=== PATIENT | female | born 1965 | race Caucasian/White ===

== ENCOUNTER 2016-11-20 11:04 | Inpatient (IN) | payer BC, OTHER ==
[~2016-11-20] VITALS: Ht 172.7 cm; Wt 54.0 kg
[2016-11-20] MEDS ORDERED: NICO1PAT27 TD (13:23)
[2016-11-20] MEDS ORDERED: ESTR1PAT78 TD (13:23)
[2016-11-20] MEDS ORDERED: OMEP20CA10 PO (13:28)
[2016-11-20] MEDS ORDERED: TRET20CR35 TP (13:28)
--- NOTE | 2016-11-20 13:30 | NUR ---
PRE ADMISSION Pt in intake office , came from home. Pt alert and oriented to name, place, and time. Perrla. Skin warm and dry to touch. Respirations even and unlabored. No distress noted. YK=129/59 P=85 R=16 U7=011%@RA T=98.0. Explained to pt about rules on unit and what to expect.
[2016-11-20 13:32] LABS: *AMPHETAMINE, URINE POSITIVE (NEGATIVE); *BARBITURATE, URINE NEGATIVE (NEGATIVE); *CANNABINOID, URINE NEGATIVE (NEGATIVE); *COCCAINE, URINE NEGATIVE (NEGATIVE); *OPIATE, URINE POSITIVE (NEGATIVE); *PHENCYCLIDINE SCREEN,URINE NEGATIVE (NEGATIVE)
[2016-11-20] MEDS ORDERED: ARIP5TAB10 PO (13:37)
[2016-11-20] MEDS ORDERED: VALA500T34 PO (13:37)
[2016-11-20] MEDS ORDERED: FLUO-120 PO (13:37)
[2016-11-20] MEDS ORDERED: TRAZ-147 PO (13:37)
--- NOTE | 2016-11-20 14:00 | NUR ---
ADMISSION Pt 51 y/o female admitted for opioid dependence. Pt came from home and was assissted by friend to come to acute detox. Pt alert and oriented to name, place, and time. Perrla. Skin warm and dry to touch. Respirations even and unlabored. VS wnl. No hand tremors noted. Pt ambulatory unassissted with steady gait noted. Pt was seen by MD. Oriented pt to room and unit. Allergy with prednisone. Pt denies any sz history. No distress noted at this time. substance hx: 1) norco po 10/750mg x 10 pills daily x 3 years, and last took 11/20/16 10/750mg x2 pills 2) vivance po 70mg daily x3 years, and last took 11/20/16 70mg medical hx: ILD 2016, lupus 1996, Mixed Connective Tissue Disase 1996, hepatitis 1999 treatment hx 180 in 2011 for 10 months Mignon ledesma for 30 days , but does not remember the dates Addendum: 11/20/16 at 1829 by MAYDA GRAVES RN addition: initial cows=2. Skin clear.
[2016-11-20] MEDS ORDERED: METHOCARBAMOL 750 MG TABLET PO PRN (15:00)
[2016-11-20] MEDS ORDERED: MIRALAX 17 GM POWD.PACK PO PRN (15:00)
[2016-11-20] MEDS ORDERED: ONDANSETRON 4 MG/2 ML VIAL IM PRN (15:00)
[2016-11-20] MEDS ORDERED: MAG HYDROX/AL HYDROX/SIMETH 30 ML LIQUID UDC PO PRN (15:00)
[2016-11-20] MEDS ORDERED: CLONIDINE HCL 0.1 MG TABLET PO PRN (15:00)
[2016-11-20] MEDS ORDERED: DICYCLOMINE HCL 20 MG TABLET PO PRN (15:00)
[2016-11-20] MEDS ORDERED: MAGNESIUM HYDROXIDE 30 ML LIQUID UDC PO PRN (15:00)
[2016-11-20] MEDS ORDERED: LOPERAMIDE HCL 2 MG CAPSULE PO PRN ×2 (15:00)
[2016-11-20] MEDS ORDERED: BUPRENORPHINE HCL 2 MG TAB.SUBL SL PRN (15:00)
[2016-11-20] MEDS ORDERED: diphenhydrAMINE 50 MG CAPSULE PO PRN (15:00)
[2016-11-20] MEDS: NICOTINE 21MG PATCH TOP SCH (15:30)
[2016-11-20] MEDS ORDERED: TRAZODONE 50 MG TABLET PO PRN (15:30)
[2016-11-20 16:25] LABS: ALANINE AMINOTRANSFERASE 17 U/L (14-59); ALKALINE PHOSPHATASE 110 U/L (50-136); ASPARTATE AMINOTRANSFERASE 23 U/L (15-37); BILIRUBIN,TOTAL 0.1 mg/dL (0.2-1.0); CARBON DIOXIDE 28 mmol/L (21-32); CHLORIDE 102 mmol/L (98-107); CREATININE 0.6 mg/dL (0.6-1.3); GLUCOSE 113 mg/dL (74-106); MAGNESIUM 1.8 mg/dL (1.8-2.4); POTASSIUM 3.9 mmol/L (3.5-5.1); TOTAL PROTEIN, SERUM 8.3 g/dL (6.4-8.2); UREA NITROGEN, BLOOD 10 mg/dL (7-18)
[2016-11-20 16:28] LABS: ETHANOL < 3 MG/DL (0-0)
[2016-11-20 16:30] LABS: THYROID STIMULATING HORMONE 1.328 mIU/mL (0.358-3.740)
[2016-11-20 16:46] LABS: BASOPHILS # (AUTO) 0.1 K/uL (0.0-8.0); BASOPHILS % (AUTO) 0.7 % (0.0-2.0); EOSINOPHILS # (AUTO) 0.2 K/uL (0.0-0.7); EOSINOPHILS % (AUTO) 1.8 % (0.0-7.0); HEMATOCRIT 32.6 % (37-47); HEMOGLOBIN 10.6 G/DL (12.0-16.0); LYMPHOCYTES # (AUTO) 2.2 K/UL (0.8-4.8); MEAN CORPUSCULAR HEMOGLOBIN 28.2 UUG (27.0-31.0); MEAN CORPUSCULAR HGB CONC 32 g/dL (32.0-37.0); MEAN CORPUSCULAR VOLUME 87.1 FL (81.0-99.0); MONOCYTES # (AUTO) 0.6 K/UL (0.1-1.30); MONOCYTES % (AUTO) 6.3 % (0.0-11.0); NEUTROPHILS # (AUTO) 5.9 K/UL (1.8-8.9); NEUTROPHILS % (AUTO) 67.2 % (38.5-71.5); PLATELET COUNT (AUTO) 211 K/UL (150-450); RED BLOOD CELL COUNT(AUTO) 3.74 MIL/UL (4.2-5.4)
[2016-11-20 17:00] VITALS: BP 102/69
--- NOTE | 2016-11-20 18:29 | NUR ---
END OF SHIFT Pt 51 y/o female admitted for opioid dependence. Pt alert and oriented to name, place, and time. Perrla. Skin warm and dry to touch. Respirations even and unlabored. No hand tremors noted at this time. Pt observed mostly isolative to room today. Pt was seen by MD today. Bed on lowest position with side rails x 2 up for safety. Call light within reach. No distress noted at this time.
--- NOTE | 2016-11-20 19:50 | NUR ---
Start of Shift Note: Report received from day shift nurse. Pt is a 51 yo female admitted on 11/20/16 for medically-supervised withdrawal from opiates. Pt reports taking 10 tabs of 750/10mg [place] daily for 3 years. Pt is to start a 5-day Subutex taper tomorrow; PRN Subutex is available tonight. Pt received with last COWS=1, and no PRN's were given during day shift. Pt is a full code, reports allergy to prednisone, and is on a regular diet. PMHx: interstitial lung disease (2016), lupus (1996), mixed connective tissue disease (1996), hepatitis-B (1977, 1999). Pt received in room, and reports anxiety, pain; pt noted to be diaphoretic . Bed is in low position and locked, side rails up x2, call light within reach. Will continue to monitor.
[2016-11-20 20:00] VITALS: BP 110/76
[2016-11-20] MEDS: IBUPROFEN 600 MG TABLET PO PRN (20:44)
--- NOTE | 2016-11-20 20:45 | NUR ---
PRN's Motrin, Robaxin, and Clonidine: Patient complains of 8/10 pain in neck, generalized, and h/a. Administered PRN Motrin as ordered. Patient complains of myalgia in neck and legs. Administered PRN Robaxin as ordered. Patient complains of anxiety, diaphoresis, and chills. Administered PRN Clonidine as ordered. Will continue to monitor.
--- NOTE | 2016-11-20 21:45 | NUR ---
PRN Reassessment: Patient reports mild relief of anxiety, diaphoresis, myalgia and pain. PRN's Robaxin, Clonidine, and Motrin mildly effective. Will continue to monitor s/s of withdrawal for Subutex induction.
[2016-11-20] MEDS: HYDROXYZINE PAMOATE 25 MG CAPSULE PO PRN (22:57)
--- NOTE | 2016-11-20 22:57 | NUR ---
PRN Vistaril and PRN Trazodone: Patient complains of anxiety. Administered PRN Vistaril as ordered. Patient complains of inability to sleep. Administered PRN Trazodone as ordered. Will continue to monitor.
--- NOTE | 2016-11-20 23:57 | NUR ---
PRN Reassessment: Patient reports that she is too uncomfortable to sleep and is too anxious. PRN Trazodone and PRN Vistaril not effective d/t opiate withdrawal symptoms. Patient educated on risks and benefits of Subutex induction and patient verbalized understanding and agreement. COWS is now at 14 and appropriate for induction according to dose instructions and last use reported.
[2016-11-21] VITALS (9 sets, daily range): BP systolic 67–112; BP diastolic 36–81
--- NOTE | 2016-11-21 00:26 | NUR ---
PRN Subutex: Patient complains of anxiety, restlessness, myalgia, generalized pain; pt noted to be diaphoretic. COWS is 14. Administered PRN Subutex 4mg SL as ordered. Will reassess in 30 minutes.
--- NOTE | 2016-11-21 01:00 | NUR ---
PRN Subutex Reassessment: Patient noted to be less anxious and restless, reports a reduction in pain. COWS decreased from 14 to 2 thirty minutes after PRN Subutex 4mg SL administration. Will continue to monitor.
--- NOTE | 2016-11-21 04:00 | NUR ---
COWS Deferred: COWS is deferred for sleep. V/S stable. All safety precautions are in place. Will continue to monitor. Addendum: 11/21/16 at 0526 by NATHALIA SAEZ RN Amended: Links added.
--- NOTE | 2016-11-21 07:30 | NUR ---
End of Shift Note: Pt is a 51 yo female admitted to [facility] on 11/20/16 for medically-supervised withdrawal from opiates. Pt reported a PMHx of interstitial lung disease (2016), lupus (1996), mixed connective tissue disease (1996), and hepatitis-B (1977, 1999). Pt is a full code. Pt reports allergy to prednisone. Pt is on a regular diet. Pt reported taking 10 tabs of 750/10mg [place] daily for 3 years. Pt is to start a 5-day Subutex taper tomorrow. Scheduled medication regime managed s/s of withdrawal this shift, in addition to PRN Vistaril and Clonidine for anxiety, PRN Robaxin for myalgia, PRN Motrin for pain, and PRN Subutex for COWS 14. Last COWS=2 at 00:55. V/S stable throughout shift. Total fluid intake this shift: 1597 ml oral; output: urine x 3 and BM x 0. PRN Trazodone was given for inability to sleep, and pt slept 6 hours this shift. Pt is currently in bed, all needs have been attended and met. Pt endorsed to day shift nurse.
--- NOTE | 2016-11-21 07:30 | NUR ---
START OF SHIFT Pt 51 y/o female admitted for opioid dependence. Pt received in room on bed with eyes closed resting, but easily arousable to name. Pt alert and oriented to name, place, and time. Perrla. Skin warm and dry to touch. Respirations even and unlabored. Bilateral hand tremors noted slightly. It was reported that pt slept for 6 hours last night. Bed on lowest position with side rails x 2 up for safety. Call light within reach. No distress noted at this time.
[2016-11-21 08:08] LABS: HEPATITIS B SURFACE AG Negative (Negative)
[2016-11-21] MEDS ORDERED: TUBERCULIN,PURIF.PROT.DERIV. 5 TU/0.1 ML TEST ID ONE (09:00)
[2016-11-21] MEDS: MULTIVITAMINS,THERAPEUTIC TABLET PO SCH (09:18)
[2016-11-21] MEDS: BUPRENORPHINE HCL 2 MG TAB.SUBL SL SCH ×4 (09:18→20:31)
[2016-11-21] MEDS: ESTRADIOL TOP SCH (09:19)
[2016-11-21] MEDS: [UNRECOGNIZED DRUG - OTHER] TOP SCH (09:19)
[2016-11-21] MEDS: NICOTINE 21MG PATCH TOP SCH (09:19)
[2016-11-21] MEDS: FLUOXETINE HCL 20 MG CAPSULE PO SCH (14:26)
--- NOTE | 2016-11-21 18:27 | NUR ---
END OF SHIFT Pt 51 y/o female admitted for opioid dependence. Pt alert and oriented to name, place, and time. Perrla. Skin warm and dry to touch. Respirations even and unlabored. No hand tremors noted at this time. Pt observed mostly isolative to room today. Pt was seen by MD today. Pt medication compliant and tolerated well. No ASE noted. Bed on lowest position with side rails x 2 up for safety. Call light within reach. No distress noted at this time.
[2016-11-21] MEDS: ONDANSETRON ODT 4 MG TAB.RAPDIS SL PRN (19:09)
[2016-11-21] MEDS: ACETAMINOPHEN 325 MG TABLET PO PRN (19:14)
--- NOTE | 2016-11-21 19:15 | NUR ---
PRN Pt states feels nauseated. Zofran odt prn per MD order given and tolerated well.
--- NOTE | 2016-11-21 19:15 | NUR ---
PRN Pt states has headache 5/10. tylenol po prn per MD order given and tolerated well.
--- NOTE | 2016-11-21 19:15 | NUR ---
Start of Shift Patient received. Patient is a 51 year female admitted on 11/20/16 for Opioid Dependence under the care of Dr. Corrales. Patient is currently receiving a modified 5 day Subutex taper. Patient verbalizes allergies to Prednisone, wishes to be full code, following a regular diet, placed on fall precautions, skin noted intact. Past medical history noted as Interstitial lung disease in 2016, Lupus 1996, Mixed Connective tissue Disease 1996, Hepatitis B 1977, 1999. No history of seizures. Per endorsement, patients last noted COWS noted to be 5. All needs attended to promptly. Will continue plan of care as ordered.
--- NOTE | 2016-11-21 20:21 | NUR ---
PRN Medication Reassessment Patient continues with nausea and noted with episode of emesis x1. PRN Zofran SL noted to be not effective. Patient also verbalizes pain or 7/10 of a headache. PRN Tylenol noted not to be effective. Will administered medications accordingly.
[2016-11-21] MEDS: IBUPROFEN 600 MG TABLET PO PRN (20:31)
[2016-11-21] MEDS: ARIPIPRAZOLE 5 MG TABLET PO SCH (20:31)
[2016-11-21] MEDS: TRAZODONE 100 MG TABLET PO SCH (20:31)
--- NOTE | 2016-11-21 21:12 | NUR ---
PRN Mediation Administration PRN Zofran injection administered due to continued increased nausea. PRN Motrin administered due to pain of 7/10 due to headache. All non pharmacological interventions noted to not be effective. Will continue to monitor.
--- NOTE | 2016-11-21 22:15 | NUR ---
PRN Medication Reassessment Patient noted in bed sleeping but aroused to verbal stimuli. Breathing even and non labored. Patient is able to verbalize nausea and pain due to a headache has subsided. PRN Zofran injection and PRN Motrin noted to be effective. Will continue plan of care as ordered.
[2016-11-22] VITALS (7 sets, daily range): BP systolic 85–101; BP diastolic 43–69
[2016-11-22] MEDS: ACETAMINOPHEN 325 MG TABLET PO PRN ×2 (02:15→13:11)
--- NOTE | 2016-11-22 02:15 | NUR ---
PRN Medication Administration Patient noted awake and verbalizing pain of 5/10 due to headache. PRN Tylenol administered as per order. Will continue to monitor.
--- NOTE | 2016-11-22 03:15 | NUR ---
PRN Medication Reassessment Patient is in bed sleeping. breathing even and non labored. No signs of pain or discomfort noted. Patient was given Tylenol for pain of headache. Patient noted to sleep well with no facial grimacing noted. PRN medication noted to be effective.
--- NOTE | 2016-11-22 07:22 | NUR ---
End of Shift Patient is in bed sleeping. Breathing even and non labored. No signs of pain or discomfort noted. Patient is a 51 year female admitted on 11/20/16 for Opioid Dependence and continues on a 5 day Subutex taper. Allergies to Prednisone, wishes to be full code, following a regular diet, placed on fall precautions, skin noted intact. Patient was given PRN Zofran injection, Motrin, and Tylenol with medications noted to be effective. All needs attended to promptly. Will continue plan of care as ordered.
--- NOTE | 2016-11-22 07:56 | NUR ---
START OF SHIFT Pt 51 y/o female admitted for opioid dependence. Pt received in room on bed with eyes closed resting, but easily arousable to name. Pt alert and oriented to name, place, and time. Perrla. Skin warm and dry to touch. Respirations even and unlabored. Bilateral hand tremors noted slightly. It was reported that pt slept for 10 hours last night. Bed on lowest position with side rails x 2 up for safety. Call light within reach. No distress noted at this time.
[2016-11-22] MEDS: MULTIVITAMINS,THERAPEUTIC TABLET PO SCH (09:20)
[2016-11-22] MEDS: FLUOXETINE HCL 20 MG CAPSULE PO SCH (09:21)
[2016-11-22] MEDS: BUPRENORPHINE HCL 2 MG TAB.SUBL SL SCH ×3 (09:21→20:44)
[2016-11-22] MEDS: NICOTINE 21MG PATCH TOP SCH (09:22)
--- NOTE | 2016-11-22 10:54 | NUR ---
Therapist prompted client about group times. Client reported she will try to go to all groups today.
--- NOTE | 2016-11-22 16:10 | NUR ---
PRN Pt with c/o migraine. Excedrin po prn per MD order given and tolerated well.
[2016-11-22] MEDS: ASPIRIN/ACETAMINOPHEN/CAFFEINE TABLET PO PRN (16:19)
--- NOTE | 2016-11-22 17:10 | NUR ---
PRN AGUSTINA Pt observed on bed in room with eyes closed resting, but easily arousable to name.
--- NOTE | 2016-11-22 19:20 | NUR ---
Start of Shift Patient Received. Patient is in her room, awake, alert and watching TV. Breathing even and non labored. No signs of pain or discomfort noted. Patient is a 51 year old female admitted on 11/20/16 for Opioid Dependence under the care of Dr. Corrales and continues on a 5 day Subutex taper. Patient verbalizes allergies to Prednisone, wishes to be full code, following a regular diet, placed on fall precautions, with skin noted intact. Per endorsement, patient was seen by MD with new order for Excedrin I tab for headaches and was given one dose. Medication noted to be effective. Last COWS noted 4. All needs attended to promptly. Will continue plan of care as ordered.
[2016-11-22] MEDS: ARIPIPRAZOLE 5 MG TABLET PO SCH (20:44)
[2016-11-22] MEDS: TRAZODONE 100 MG TABLET PO SCH (20:44)
[2016-11-23 00:39] VITALS: BP 93/62
[2016-11-23 04:00] VITALS: BP 98/66
[2016-11-23] MEDS: ASPIRIN/ACETAMINOPHEN/CAFFEINE TABLET PO PRN (06:09)
--- NOTE | 2016-11-23 06:10 | NUR ---
PRN Medication Administration Patient verbalizing pain 7/10 due to headache. PRN Excedrin administered as per orders. Will continue to monitor.
[2016-11-23] MEDS: ONDANSETRON ODT 4 MG TAB.RAPDIS SL PRN (06:31)
--- NOTE | 2016-11-23 06:33 | NUR ---
PRN Medication Administration Patient verbalizing increased nausea with episode of emesis noted. PRN Zofran SL Administered. Will continue to monitor.
--- NOTE | 2016-11-23 07:07 | NUR ---
End of Shift Patient is in bed sleeping. Breathing even and non labored. No signs of pain or discomfort noted. Patient is a 51 year female admitted on 11/20/16 for Opioid Dependence and continues on a 5 day Subutex taper. Allergies to Prednisone, wishes to be full code, following a regular diet, placed on fall precautions, skin noted intact. Patient was given PRN Excedrin and PRN Zofran SL. Will endorse to monitor for effectiveness of medication All needs attended to promptly. Will continue plan of care as ordered.
--- NOTE | 2016-11-23 07:08 | NUR ---
Start of Shift Notes: Received patient in her room. Alert and oriented x 4. Verbally responsive. Able to make need known. Respirations even and unlabored. No SOB noted. Skin warm and dry to touch. Abdomen soft and non-distended with (+) BS in all 4 quadrants. No complains of N/V/D or constipation noted. Bladder non-distended. No complains of bladder pain or discomfort. Voids independently. Ambulatory ad marcelo with steady gait. Patient is a 51 year old female admitted for opiate dependence who was placed on a 5-day Subutex taper as ordered. No adverse reactions noted. Allergic to prednisione. FULL CODE. Regular diet. On fall and seizure precautions. Educated patient on her current plan of care for the day and her medication regimen. Encouraged oral fluid intake and encouraged group participation to learn new skills to prevent relapse.
[2016-11-23 08:00] VITALS: BP 85/51
[2016-11-23] MEDS: MULTIVITAMINS,THERAPEUTIC TABLET PO SCH (08:15)
[2016-11-23] MEDS: FLUOXETINE HCL 20 MG CAPSULE PO SCH (08:15)
[2016-11-23] MEDS: NICOTINE 21MG PATCH TOP SCH (08:15)
[2016-11-23] MEDS ORDERED: BUPRENORPHINE HCL 2 MG TAB.SUBL SL SCH ×2 (09:00→15:00)
--- NOTE | 2016-11-23 09:59 | NUR ---
Subutex 4 mg SL at 0900 held: Patient's blood pressure 85/51. Denies any complains of headache, dizziness, lightheadedness. Patient is laying in bed. COWS 4. Patient request Subutex 4 mg to be held. Patient states "It makes me feel sick and nauseated." Subutex 4 mg SL held at this time. Will notify
[2016-11-23 12:00] VITALS: BP 80/56
[2016-11-23] MEDS ORDERED: KETOROLAC TROMETHAMINE 30 MG INJ IM PRN (12:45)
[2016-11-23] MEDS ORDERED: NAPROXEN 500 MG TABLET PO ONE (13:00)
[2016-11-23] MEDS: LORAZEPAM 1 MG TABLET PO SCH ×2 (13:07→20:15)
--- NOTE | 2016-11-23 13:08 | NUR ---
Taper changed: Informed Dr. Corrales of patient's reaction to Subutex. Per MD, Subutex taper will be DCd and will be started on Ativan taper to control anxiety and Baclofen and Bentyl to manage opiate withdrawal symptoms. Patient education was provided. Patient verbalized good understanding. First dose of Ativan taper started at this time.
--- NOTE | 2016-11-23 13:40 | NUR ---
MD Communication: Notified MD Corrales of patient's blood pressure readings. Per MD, continue to monitor.
[2016-11-23] MEDS: BACLOFEN 10 MG TABLET PO SCH ×2 (14:20→20:15)
[2016-11-23] MEDS: DICYCLOMINE HCL 20 MG TABLET PO SCH ×2 (14:20→20:15)
[2016-11-23 16:00] VITALS: BP 102/59
--- NOTE | 2016-11-23 18:45 | NUR ---
End of Shift Notes: Patient was started on Ativan taper today to manage symptoms related to opiate withdrawal. VS monitored closely. No significant abnormalities noted. Withdrawal symptoms were closely monitored. Patients intial COWS 4, patient presented with anxiety, chills, hot flashes and muscle aches and pains. Initial COWS 4. Last COWS 4. Requires encouragement to participate in group due to episodes of isolating self. Requires encouragement to increase oral intake. Unable to participate in group and therapy sessions. Safety precautions in place. All needs met and attended. Will continue to monitor closely.
--- NOTE | 2016-11-23 19:20 | NUR ---
Start of Shift Patient Received. Patient is in her room, awake, alert and watching TV. Breathing even and non labored. No signs of pain or discomfort noted. Patient is a 51 year old female admitted on 11/20/16 for Opioid Dependence under the care of Dr. Corrales. Patient verbalizes allergies to Prednisone, wishes to be full code, following a regular diet, placed on fall precautions, with skin noted intact. Per endorsement, patient was seen by MD with new orders to D/C Subutex taper and Start patient on a modified 3 day Ativan taper. A new order obtained for Naproxen Q12H. Last COWS noted 4. All needs attended to promptly. Will continue plan of care as ordered.
[2016-11-23 20:10] VITALS: BP 85/52
--- NOTE | 2016-11-23 20:10 | NUR ---
Communication aware of Vital signs with ok to administer medications. Will monitor accordingly. Addendum: 11/23/16 at 2013 by SHAHRZAD THOMPSON LVN Amended: Links added.
[2016-11-23] MEDS: NAPROXEN 500 MG TABLET PO SCH (20:15)
[2016-11-23] MEDS: TRAZODONE 100 MG TABLET PO SCH (20:15)
[2016-11-23] MEDS: ARIPIPRAZOLE 5 MG TABLET PO SCH (20:15)
[2016-11-24 00:30] VITALS: BP 89/56
[2016-11-24 04:15] VITALS: BP 92/53
--- NOTE | 2016-11-24 07:12 | NUR ---
End of Shift Patient Received. Patient is in bed sleeping. Breathing even and non labored. No signs of pain or discomfort noted. Patient is a 23 year old male, admitted on 11/18/16 for Opiate Dependence under the care of Dr. Corrales. Patient has completed a 5 day Subutex taper. Patient verbalizes no known allergies, wishes to be full code, following a regular diet, placed on fall precautions. Skin is noted with Bilateral upper extremities Abscesses and continues on ATB Therapy Bactrim DS. Past Medical History verbalized as Anxiety, Asthma, Depression, insomnia, and history of Chlamydia. Per endorsement, patient is set for discharge today 11/24/16. No PRN Medication administered. All needs attended to promptly. Will continue plan of care as ordered.
--- NOTE | 2016-11-24 08:09 | NUR ---
BEGINNING OF SHIFT Patient endorsement report received from manufacturing shift supervisor nurse, all pertinent information discussed. Patient is a 51 year old female admitted on 11/20/2016 with admitting Dx:Opiate dependence. Patient with ongoing modified 3 day Ativan taper as ordered. Patient received no PRN medications during manufacturing shift supervisor. Last COW score of: 2. Patient slept for 8 hours. patient received in bed awake, alert and oriented x4, educated regarding plan of care for the day and medication regimen with good verbal understanding, will monitor closely. fall and seizure precautions observed at all times. all needs met and rendered, will continue to monitor.
[2016-11-24 08:30] VITALS: BP 92/68
[2016-11-24] MEDS ORDERED: BUPRENORPHINE HCL 2 MG TAB.SUBL SL SCH (09:00)
[2016-11-24] MEDS: MULTIVITAMINS,THERAPEUTIC TABLET PO SCH (09:03)
[2016-11-24] MEDS: LORAZEPAM 1 MG TABLET PO SCH ×3 (09:04→20:38)
[2016-11-24] MEDS: BACLOFEN 10 MG TABLET PO SCH ×3 (09:04→20:40)
[2016-11-24] MEDS: FAMOTIDINE 20 MG TABLET PO SCH (09:04)
[2016-11-24] MEDS: DICYCLOMINE HCL 20 MG TABLET PO SCH ×3 (09:04→20:39)
[2016-11-24] MEDS: NAPROXEN 500 MG TABLET PO SCH ×2 (09:04→20:40)
[2016-11-24] MEDS: FLUOXETINE HCL 20 MG CAPSULE PO SCH (09:04)
[2016-11-24] MEDS: NICOTINE 21MG PATCH TOP SCH (09:09)
[2016-11-24 13:02] VITALS: BP 90/58
[2016-11-24 17:39] VITALS: BP 90/56
--- NOTE | 2016-11-24 19:16 | NUR ---
END OF SHIFT Patient alert and oriented x4, vital signs stable during shift. Patient compliant with therapeutic plan of care. Admitting Dx: opiate dependence, Patient continues on modified Ativan taper as ordered, well tolerated, no ASE noted. 0900 assessment patient presented with: mild bone and joint aches, tremors that can be felt but not seen, tremors that can be felt but not seen, and mild anxiety with cow score of: 3; 1300 assessment patient presented with: mild bone and joint aches, tremors that can be felt but not seen, tremors that can be felt but not seen, and mild anxiety with cow score of: 3; 1700 assessment patient presented with: mild bone and joint aches, tremors that can be felt but not seen, tremors that can be felt but not seen, and mild anxiety with cow score of: 3. No PRN medications were administered during shift. Patient encouraged to attend group/therapy sessions to learn new coping skills to prevent relapse, denies SI/HI. Patient compliant with plan of care during shift. Safety measures in place. call light kept with in reach. Patient endorsement report given to night baker nurse, all pertinent information discussed. safety measures in place. will continue to monitor.
[2016-11-24 20:00] VITALS: BP 86/56
--- NOTE | 2016-11-24 20:00 | NUR ---
1999 Patient received awake, alert and lying quietly in bed watching television. Patient responds to nurse's greeting and introduction with, " Hi, who do I complain to about some things. There's only a certain amount of time that you have to take care of me and my time here has been terrible. Dr. Corrales made promises to me and I don't understand what's going on and why nobody has told me how to get my personal toiletries everyday. Me and Dr. Corrales discussed this, and he told me that they would bring my toiletries to my room!" Patient states further that her eyeglasses are missing from her room as well as her TV remote. Patient states, " I had both of them this afternoon and I've looked everywhere in this room and my clothes". Patient allowed to ventilate her feelings and then calm reassurances given to her along with simple explanations regarding floor protocols and her personal belongings. Patient then assured that nurse will try help her to find her missing eyeglasses and TV remote, by notifying floor staff to be on the lookout and by doing some floor, room, and clothes searching, for said items. Patient is oriented to person, place, day, date, time and her personal situation. Patient's color is camacho-pink and her skin is warm, dry and intact. Vital signs are: 98-77-16 86/56, O2 Sat 96%, COWS 6. Patient states that she is eating her regular diet trays and taking fluids ad marcelo with no gastric issues. Patient has attended some [facility] groups. Patient denies any pain at this time. Patient was admitted on 11/20/16 for [place] and Vyvanse withdrawal and she had been on a 5-Day Subutex medication taper that was changed to a modified 3-Day Ativan medication taper today. Patient is overall cooperative and verbally appropriate when interacting with nurse, however mood/affect presents irritated and anxious. Bed is locked and in lowest position, bed rails are up X 1 and call light within patient's easy reach.
--- NOTE | 2016-11-24 20:30 | NUR ---
Patient given new television remote, which she put on her bed and then went to shower.
[2016-11-24] MEDS: ARIPIPRAZOLE 5 MG TABLET PO SCH (20:38)
[2016-11-24] MEDS: TRAZODONE 100 MG TABLET PO SCH (20:39)
--- NOTE | 2016-11-25 | NUR ---
Patient refused to be awakened for V/S to be done at this time.
--- NOTE | 2016-11-25 04:00 | NUR ---
Patient refused to be awakened for V/S to be done at this time.
--- NOTE | 2016-11-25 06:30 | NUR ---
0630 Patient slept a total of 7 hours and she had 1 void and no stools. Total intake was 250 ml p.o. No Prn medications given this shift. V/SS afebrile, last COWS 3 at 1999. Patient is presently sleeping comfortably with eyes closed and respirations quiet, even, unlabored at 12.
--- NOTE | 2016-11-25 07:16 | NUR ---
Patient report given to oncoming dayshift nurse, along with patient's expressed concerns.
--- NOTE | 2016-11-25 07:33 | NUR ---
Start of Shift Notes: Received patient in her room. Alert and oriented x 4. Verbally responsive. Able to make need known. Respirations even and unlabored. No SOB noted. Skin warm and dry to touch. Abdomen soft and non-distended with (+) BS in all 4 quadrants. No complains of N/V/D or constipation noted. Bladder non-distended. No complains of bladder pain or discomfort. Voids independently. Ambulatory ad marcelo with steady gait. Patient is a 51 year old female admitted for opiate dependence who was placed on a modified Ativan taper as ordered. No adverse reactions noted. Allergic to prednisione. FULL CODE. Regular diet. On fall and seizure precautions. Educated patient on her current plan of care for the day and her medication regimen. Encouraged oral fluid intake and encouraged group participation to learn new skills to prevent relapse.
[2016-11-25 08:00] VITALS: BP 97/60
[2016-11-25] MEDS: FAMOTIDINE 20 MG TABLET PO SCH (08:17)
[2016-11-25] MEDS: BACLOFEN 10 MG TABLET PO SCH ×3 (08:17→20:22)
[2016-11-25] MEDS: [UNRECOGNIZED DRUG - OTHER] TOP SCH (08:17)
[2016-11-25] MEDS: DICYCLOMINE HCL 20 MG TABLET PO SCH ×3 (08:17→20:21)
[2016-11-25] MEDS: NAPROXEN 500 MG TABLET PO SCH ×2 (08:17→20:22)
[2016-11-25] MEDS: FLUOXETINE HCL 20 MG CAPSULE PO SCH (08:17)
[2016-11-25] MEDS: ESTRADIOL TOP SCH (08:17)
[2016-11-25] MEDS: MULTIVITAMINS,THERAPEUTIC TABLET PO SCH (08:18)
[2016-11-25] MEDS: NICOTINE 21MG PATCH TOP SCH (08:18)
[2016-11-25] MEDS ORDERED: BUPRENORPHINE HCL 2 MG TAB.SUBL SL SCH (09:00)
[2016-11-25] MEDS ORDERED: LORAZEPAM 1 MG TABLET PO SCH (09:00)
[2016-11-25] MEDS ORDERED: BACL10TA PO (10:13)
[2016-11-25] MEDS ORDERED: DICY20TA28 PO (10:13)
[2016-11-25] MEDS ORDERED: NAPR500T3 PO (10:13)
[2016-11-25] MEDS ORDERED: HYDR-3895 PO (10:13)
[2016-11-25] MEDS ORDERED: FAMO20TA8 PO (10:13)
[2016-11-25 12:00] VITALS: BP 95/54
[2016-11-25 16:00] VITALS: BP 92/51
--- NOTE | 2016-11-25 17:07 | NUR ---
MD Communication: Notified Dr. Corrales that patient has been agitated and irritable throughout the shift. Patient demanded to speak with Dr. Corrales and to make a phone call. Patient was directed to the manager client service and phone call was made. Patient verbalized "I want to leave, leave now" Dr. Corrales was in the unit and informed of patient's current condition. Per MD, he will enter orders.
[2016-11-25] MEDS ORDERED: BACLOFEN 20 MG TABLET PO ONE (17:30)
[2016-11-25] MEDS ORDERED: HYDROXYZINE PAMOATE 25 MG CAPSULE PO ONE (17:30)
--- NOTE | 2016-11-25 17:42 | NUR ---
New Orders: Per MD, administer Baclofen 20 mg PO x 1 and Vistaril 50 mg PO x 1. Call MD if ineffective. Will continue to monitor.
--- NOTE | 2016-11-25 17:45 | NUR ---
Baclofen 20 mg PO x 1 given/Vistaril 50 mg PO given: Administered x 1 dose of the above meds due to complains of generalized aching and anxiety. Will monitor for effectiveness.
--- NOTE | 2016-11-25 18:45 | NUR ---
Re-assessment: Per patient, PRN Vistaril and Baclofen was effective in reducing anxiety and generalized muscle aches.
--- NOTE | 2016-11-25 18:57 | NUR ---
End of Shift Notes: Patient completed her Ativan taper as ordered. No adverse reactions noted. VS monitored closely. Patient noted with trending low BP. No s/s of headache, dizziness or lightheadedness noted. MD aware of patients BP readings. Withdrawal symptoms were closely monitored. Patients initial COWS 5, Last COWS 3. Per patient, Ativan has helped reduce her withdrawal symptoms. Patient did not participate in group and therapy sessions. Patient isolates selfmost of the day and stays in bed despite encouragement to participate and do activities. X 1 dose of Baclofen and Vistaril 50 mg PO was given per MD with help after 1 hour. Safety precautions in place. All needs met and attended. Patient will be discharging tomorrow. UDS pending.
[2016-11-25 20:00] VITALS: BP 94/52
--- NOTE | 2016-11-25 20:00 | NUR ---
1999 Patient received awake, alert and lying in position of comfort, watching television. Patient responds to nurse's greeting with, " Hi, my day was okay". Patient is oriented to person, place, day, date, time and her personal situation. Patient's color is camacho-pink and her skin is warm, dry and intact. Patient's overall appearance however is disheveled. Patient denies any pain or other discomforts presently and she offers no specific requests or complaints at this time. Patient states that she is eating her regular diet trays and taking fluids ad marcelo with no gastric issues. Patient states that she is being discharged tomorrow and she is aware that a urine specimen is needed from her for a discharge UDS. Vital signs are: 98-77-14 94/52, O2 Sat 97%, COWS 3 . Patient was admitted on 11/20/16 for: [place] and Vyvanse withdrawal and she has completed all ordered medication tapers at this time. Patient is cooperative but guarded when interacting with nurse. Bed is locked and in lowest position, bed rail are up X 1 and call light within patient's easy reach.
[2016-11-25] MEDS: ARIPIPRAZOLE 5 MG TABLET PO SCH (20:21)
[2016-11-25] MEDS: TRAZODONE 100 MG TABLET PO SCH (20:21)
[2016-11-25] MEDS: HYDROXYZINE PAMOATE 25 MG CAPSULE PO PRN (20:22)
--- NOTE | 2016-11-25 20:22 | NUR ---
PRN MEDICATION: Prn Vistaril 25 mg p.o. given per request for c/o anxiety.
--- NOTE | 2016-11-25 21:22 | NUR ---
REASSESSMENT PRN MEDICATION: Patient is resting comfortably with eyes closed and respirations quiet, even, unlabored at 12.
--- NOTE | 2016-11-26 | NUR ---
Patient refused to be awakened for V/S to be done at this time.
--- NOTE | 2016-11-26 04:00 | NUR ---
Patient refused to be awakened for V/S to be done at this time.
--- NOTE | 2016-11-26 06:30 | NUR ---
0630 Patient slept a total of 10 hours and she had 2 voids and no stools. Total intake was 1,338 ml p.o. Prn medications given noted separately per floor protocol. V/SS afebrile, last COWS 3 at 1999. Patient is presently resting comfortably in stable condition with eyes closed and respirations quiet, even, unlabored at 12.
--- NOTE | 2016-11-26 07:55 | NUR ---
START OF SHIFT NOTE Received report from night nurse, 51 year old female admitted for Opiates dependence. Upon admission Pt reports taking 10 tabs of 750/10mg [place] daily for 3 years. Full code, Allergic to prednisone, Pt reported PMH interstitial lung disease (2016), lupus (1996), mixed connective tissue disease (1996), hepatitis-B (1977, 1999). Pt completed her taper tolerated well. Pt scheduled for discharge today. Per endorsement pt received PRN Vistaril, last COWS-3, Slept for 10 hours. Educated patient on her current plan of care for the day and her medication regimen. All safety measures in place, Call light within reach. Will cont to monitor.
[2016-11-26 08:00] VITALS: BP 100/60
[2016-11-26] MEDS: NAPROXEN 500 MG TABLET PO SCH (08:12)
[2016-11-26] MEDS: FAMOTIDINE 20 MG TABLET PO SCH (08:12)
[2016-11-26] MEDS: BACLOFEN 10 MG TABLET PO SCH (08:12)
[2016-11-26] MEDS: FLUOXETINE HCL 20 MG CAPSULE PO SCH (08:13)
[2016-11-26] MEDS: MULTIVITAMINS,THERAPEUTIC TABLET PO SCH (08:13)
[2016-11-26] MEDS: NICOTINE 21MG PATCH TOP SCH (08:19)
[2016-11-26 08:20] LABS: *AMPHETAMINE, URINE NEGATIVE (NEGATIVE); *BARBITURATE, URINE NEGATIVE (NEGATIVE); *CANNABINOID, URINE NEGATIVE (NEGATIVE); *COCCAINE, URINE NEGATIVE (NEGATIVE); *OPIATE, URINE NEGATIVE (NEGATIVE); *PHENCYCLIDINE SCREEN,URINE NEGATIVE (NEGATIVE)
--- NOTE | 2016-11-26 08:20 | NUR ---
DISCHARGE NOTE Pt is instable condition. Vital signs WNL. Pt is alert and oriented x4. Skin intact. Pt denies any SI/HI ideation. All discharge paper work completed dated and signed.Pt educated about discharge instructions. pt verbalized understanding.Pt's last COWS score1. Pt was given scheduled [place] unable to scan scanner was broken IT aware. Pt was discharged from [facility] at 0820. Pt left the building with all of her belongings ans prescriptions, and her own medications. has been contacted and notified of pt's discharge.
== END 2016-11-26 08:20 | disposition home or self-care (01) | DRG 895 ==
LOC: SRC 12:32
PROVIDERS: ADMIT Internal Medicine; ATTEND Internal Medicine
PROC: HZ2ZZZZ Detoxification Services for Substance Abuse Treatment (ICD-10-PCS; principal; 2016-11-20)
PROC: HZ41ZZZ Group Counseling for Substance Abuse Treatment, Behavioral (ICD-10-PCS; 2016-11-21)
PROC: HZ31ZZZ Individual Counseling for Substance Abuse Treatment, Behavioral (ICD-10-PCS; 2016-11-22)
DX: F11.23 Opioid dependence with withdrawal (principal); M35.1 Other overlap syndromes; F33.3 Major depressive disorder, recurrent, severe with psychotic symptoms; J84.9 Interstitial pulmonary disease, unspecified; M32.9 Systemic lupus erythematosus, unspecified; F15.23 Other stimulant dependence with withdrawal; Z78.0 Asymptomatic menopausal state; F90.9 Attention-deficit hyperactivity disorder, unspecified type; Z79.899 Other long term (current) drug therapy; G43.909 Migraine, unspecified, not intractable, without status migrainosus; F12.21 Cannabis dependence, in remission; F10.21 Alcohol dependence, in remission; D63.8 Anemia in other chronic diseases classified elsewhere; F17.211 Nicotine dependence, cigarettes, in remission
CPT/HCPCS: 36415; 70030-TC; 80307; 80324; 80361; 83735; 84443; 85025; 86580; 86592; 86705; 86803; 87340; 87806; A4663; G0480; J1885; J2405; Q0162